=== PATIENT | male | born 1960 | race Caucasian/White ===

== ENCOUNTER 2019-12-22 13:44 | Emergency (ER) | payer OTHER, SELFPAY ==
[2019-12-22 16:07] VITALS: BP 139/90; PULSE 82; RESP 17; TEMP 36.7; O2SAT 96; BMI 41.8
--- NOTE | 2019-12-22 16:10 | ED.BACK ---
HPI - Back Pain/Injury General Chief Complaint: Back Pain/Injury Stated Complaint: BACK PAIN X3DAYS Time Seen by Provider: 12/22/19 16:06 Source: patient and EMS Mode of arrival: EMS History of Present Illness HPI Narrative: 59-year-old male with a past medical history of sciatica, herniated disc, hypertension, hyperlipidemia c/o acute on chronic low back/sciatic pain greater on right x3 days exacerbated today after standing from the toilet and twisting/tweaking R thigh. reports recently moved back to [facility] and does not have PCP. Denies direct injury/ falls or trauma, numbness /tingling, incontinence / retention, fever /chills MD elicited complaint: back pain Related Data Previous Rx's Medication Instructions Recorded acetaminophen [Tylenol Extra 500 mg PO Q6H PRN #20 tab 12/22/19 Strength] cyclobenzaprine 5 mg PO Q8H PRN 5 Days #14 tab 12/22/19 lidocaine [Lidoderm] 1 patch TOPICAL DAILY PRN #30 ea 12/22/19 MDD remove after 12 hours naproxen 500 mg PO BID PRN 10 Days #20 tab 12/22/19 Allergies Allergy/AdvReac Type Severity Reaction Status Date / Time Penicillins Allergy rash Verified 12/22/19 16:07 Sulfa (Sulfonamide Allergy rash Verified 12/22/19 16:07 Antibiotics) Review of Systems Review of Systems: Constitutional: No Weight loss, No Fever, No Chills Gastrointestinal: No Nausea, No Vomiting, No Diarrhea, No Constipation, No Abdominal pain Genitourinary:, No Dysuria, No Urinary Frequency, No Hematuria, No Urinary Incontinence, No Urgency, No Flank Pain Musculoskeletal:+back pain, +R thigh pain joint pain, No Myalgias, No Joint Swelling Skin: No Skin Lesions, No rash Neuro: No Weakness, No Numbness, No Paresthesias PMFSH Past Medical History Attestation statement: The following information was validated with the patient. Medical History (Updated 12/22/19 @ 16:18 by ALEJANDRO Doll) Hernia High cholesterol HTN (hypertension) Surgical History (Updated 12/22/19 @ 16:12 by Patti Templeton) H/O hand surgery Social History Social History Smoking Status: Former smoker Use of substances other than those prescribed or required for medical reasons: No Advance Directives: No Advance Directives Information Provided: No Physical Exam Const: General: cooperative and healthy appearing Orientation/consciousness: patient oriented x3 Limitations: no limitations HENMT: Head: Yes normal to inspection Ears: hearing grossly normal bilaterally General nose exam: Normal external nose present Face and sinus: Yes normal facial exam Eyes: General: appearance normal, both eyes and all related structures EOM: EOMs intact bilaterally Neck: Other: no midline cervical spine tenderness Neck: Yes normal visual inspection Resp: Effort & Inspection: normal respiratory effort GI: Inspection: Yes normal to inspection Palpation (GI): Soft to palpation, nontender, no guarding and not rigid Back/Spine/Pelvis: Other: no midline thoracic/ lumbar spinous tenderness. Back pain not reproducible on exam. +Right thigh TTP. No deformity/ecchymosis or erythema Skin: Rashes: no rashes Wounds: no wounds Neuro: Other: no saddle anesthesia General: patient oriented x3 Gait exam (Neuro): Normal gait present Extrem: General: Yes normal to inspection MDM - Back Pain/Injury MDM Narrative Medical decision making narrative: likely MSK pain. No midline spinous tenderness or red flag symptoms. Low concern for cauda equina or cord compression Discharge Plan Discharge Clinical Impression: Muscle strain Sciatica Qualifiers: Laterality: right Qualified Code(s): M54.31 - Sciatica, right side Patient Disposition: Home, Self-Care Instructions: Chronic Back Pain (DC) Additional Instructions: Your pain is likely musculoskeletal Flexeril is a muscle relaxer, take at night as it makes you drowsy, do not drive, drink alcohol, or operate machinery while taking it Naproxen as an anti-inflammatory / pain medication, take with food Lidoderm patches are numbing patches, apply to painful area In addition take Tylenol at home If symptoms persist or worsen, pain becomes unbearable, you developed urinary retention or incontinence, or weakness return to the ED Prescriptions: New acetaminophen [Tylenol Extra Strength] 500 mg tablet 500 mg PO Q6H PRN (Reason: pain or fever) Qty: 20 RF: 0 lidocaine [Lidoderm] 5 % adhesive patch,medicated 1 patch topical DAILY MDD remove after 12 hours PRN (Reason: pain) Qty: 30 RF: 0 naproxen 500 mg tablet 500 mg PO BID PRN (Reason: pain) 10 Days Qty: 20 RF: 0 cyclobenzaprine 5 mg tablet 5 mg PO Q8H PRN (Reason: pain (scale score 7-10)) 5 Days Qty: 14 RF: 0 Referrals: Po,Arlyn Francois MD [Physician] - 1 week ( establish care at a primary care doctor's office)
[2019-12-22] MEDS: Lidocaine 4 % Patch ADH..PATCH 1 PATCH TRANSDERMA (16:45)
[2019-12-22] MEDS: Ketorolac Tromethamine 15 MG/ML VIAL IM (16:46)
[2019-12-22] MEDS: Cyclobenzaprine HCl 5 MG TABLET PO (16:46)
== END 2019-12-22 17:05 | disposition home or self-care (01) ==
PROVIDERS: Emergency Provider Internal Medicine
DX: M54.31 Sciatica, right side (principal); I10 Essential (primary) hypertension; Z79.899 Other long term (current) drug therapy
CPT/HCPCS: 96372; 99283; 99284; J1885

== ENCOUNTER 2020-04-02 14:40 | Outpatient (REF) | payer OTHER, SELFPAY | END 2020-04-02 14:41 | disposition home or self-care (01) | LOC: HO.BBR 14:40 | PROVIDERS: Visit Provider Internal Medicine Hematology & Oncology | DX: Z13.89 Encounter for screening for other disorder (principal) ==

== ENCOUNTER 2020-04-16 14:53 | Outpatient (REF) | payer OTHER, SELFPAY | END 2020-04-16 14:54 | disposition home or self-care (01) | LOC: HO.BBR 14:53 | PROVIDERS: Visit Provider Internal Medicine Hematology & Oncology | DX: Z13.89 Encounter for screening for other disorder (principal) ==

== ENCOUNTER 2020-04-30 15:11 | Outpatient (REF) | payer OTHER, SELFPAY ==
[2020-04-30 16:56] LABS: Iron 48 mcg/dL (45-160); Percent Iron Saturation 17 % (15-50); Total Iron Binding Capacity 287 mcg/dL (228-428); Unsaturated Iron Binding 239 ug/dL
[2020-04-30 17:19] LABS: Ferritin 342 ng/mL (20-250)
== END 2020-04-30 15:12 | disposition home or self-care (01) ==
LOC: HO.BBR 15:11
PROVIDERS: Visit Provider Internal Medicine Hematology & Oncology
DX: E83.110 Hereditary hemochromatosis (principal)
CPT/HCPCS: 36415; 82728; 83540

== ENCOUNTER 2020-05-27 15:05 | Outpatient (REF) | payer OTHER, SELFPAY ==
[2020-05-27 16:32] LABS: Iron 42 mcg/dL (45-160); Percent Iron Saturation 14 % (15-50); Total Iron Binding Capacity 304 mcg/dL (228-428); Unsaturated Iron Binding 262 ug/dL
[2020-05-27 16:53] LABS: Ferritin 245 ng/mL (20-250)
== END 2020-05-27 15:06 | disposition home or self-care (01) ==
LOC: HO.BBR 15:05
PROVIDERS: Visit Provider Internal Medicine Hematology & Oncology
DX: E83.110 Hereditary hemochromatosis (principal)
CPT/HCPCS: 36415; 82728; 83540

== ENCOUNTER 2020-06-24 12:59 | Outpatient (REF) | payer OTHER, SELFPAY ==
[2020-06-24 14:52] LABS: Iron 37 mcg/dL (45-160); Percent Iron Saturation 12 % (15-50); Total Iron Binding Capacity 304 mcg/dL (228-428); Unsaturated Iron Binding 267 ug/dL
[2020-06-24 15:14] LABS: Ferritin 176 ng/mL (20-250)
== END 2020-06-24 13:00 | disposition home or self-care (01) ==
LOC: HO.BBR 12:59
PROVIDERS: Visit Provider Internal Medicine Hematology & Oncology
DX: E83.110 Hereditary hemochromatosis (principal)
CPT/HCPCS: 36415; 82728; 83540

== ENCOUNTER 2020-07-08 15:03 | Outpatient (REF) | payer OTHER, SELFPAY | END 2020-07-08 15:04 | disposition home or self-care (01) | LOC: HO.BBR 15:03 | PROVIDERS: Visit Provider Internal Medicine Hematology & Oncology | DX: Z13.89 Encounter for screening for other disorder (principal) ==

== ENCOUNTER 2020-07-22 15:06 | Outpatient (REF) | payer OTHER, SELFPAY ==
[2020-07-22 15:55] LABS: Iron 44 mcg/dL (45-160); Percent Iron Saturation 13 % (15-50); Total Iron Binding Capacity 328 mcg/dL (228-428); Unsaturated Iron Binding 284 ug/dL
[2020-07-22 16:16] LABS: Ferritin 126 ng/mL (20-250)
== END 2020-07-22 15:07 | disposition home or self-care (01) ==
LOC: HO.BBR 15:06
PROVIDERS: Visit Provider Internal Medicine Hematology & Oncology
DX: E83.110 Hereditary hemochromatosis (principal)
CPT/HCPCS: 36415; 82728; 83540

== ENCOUNTER 2020-08-05 15:11 | Outpatient (REF) | payer OTHER, SELFPAY | END 2020-08-05 15:12 | disposition home or self-care (01) | LOC: HO.BBR 15:11 | PROVIDERS: Visit Provider Internal Medicine Hematology & Oncology | DX: Z13.89 Encounter for screening for other disorder (principal) ==

== ENCOUNTER 2020-08-19 14:01 | Outpatient (REF) | payer OTHER, SELFPAY ==
[2020-08-19 15:08] LABS: Iron 52 mcg/dL (45-160); Percent Iron Saturation 15 % (15-50); Total Iron Binding Capacity 340 mcg/dL (228-428); Unsaturated Iron Binding 288 ug/dL
[2020-08-19 15:29] LABS: Ferritin 107 ng/mL (20-250)
== END 2020-08-19 14:02 | disposition home or self-care (01) ==
LOC: HO.BBR 14:01
PROVIDERS: Visit Provider Internal Medicine Hematology & Oncology
DX: E83.110 Hereditary hemochromatosis (principal)
CPT/HCPCS: 36415; 82728; 83540

== ENCOUNTER 2020-09-03 14:07 | Outpatient (REF) | payer OTHER, SELFPAY | END 2020-09-03 14:08 | disposition home or self-care (01) | LOC: HO.BBR 14:07 | PROVIDERS: Visit Provider Internal Medicine Hematology & Oncology | DX: Z13.89 Encounter for screening for other disorder (principal) ==

== ENCOUNTER 2020-11-19 10:08 | Outpatient (REF) | payer OTHER, SELFPAY ==
[2020-11-19 10:55] LABS: Iron 30 mcg/dL (45-160); Percent Iron Saturation 10 % (15-50); Total Iron Binding Capacity 309 mcg/dL (228-428); Unsaturated Iron Binding 279 ug/dL
[2020-11-19 11:15] LABS: Ferritin 73 ng/mL (20-250)
== END 2020-11-19 10:09 | disposition home or self-care (01) ==
LOC: HO.BBR 10:08
PROVIDERS: PCP Internal Medicine; Visit Provider Internal Medicine Hematology & Oncology
DX: E83.110 Hereditary hemochromatosis (principal)
CPT/HCPCS: 36415; 82728; 83540

== ENCOUNTER 2020-12-01 14:08 | Outpatient (REF) | payer OTHER, SELFPAY | END 2020-12-01 14:09 | disposition home or self-care (01) | LOC: HO.BBR 14:08 | PROVIDERS: PCP Internal Medicine; Visit Provider Internal Medicine Hematology & Oncology | DX: Z13.89 Encounter for screening for other disorder (principal) ==

== ENCOUNTER 2020-12-17 15:21 | Outpatient (REF) | payer OTHER, SELFPAY ==
[2020-12-17 16:19] LABS: Iron 30 mcg/dL (45-160); Percent Iron Saturation 10 % (15-50); Total Iron Binding Capacity 306 mcg/dL (228-428); Unsaturated Iron Binding 276 ug/dL
[2020-12-17 16:39] LABS: Ferritin 61 ng/mL (20-250)
== END 2020-12-17 15:22 | disposition home or self-care (01) ==
LOC: HO.BBR 15:21
PROVIDERS: Visit Provider Internal Medicine Hematology & Oncology
DX: E83.110 Hereditary hemochromatosis (principal)
CPT/HCPCS: 36415; 82728; 83540

== ENCOUNTER 2020-12-31 09:29 | Outpatient (REF) | payer OTHER, SELFPAY | END 2020-12-31 09:30 | disposition home or self-care (01) | LOC: HO.BBR 09:29 | PROVIDERS: Visit Provider Internal Medicine Hematology & Oncology | DX: E83.110 Hereditary hemochromatosis (principal) | CPT/HCPCS: 85014; 85018; 99195 ==

== ENCOUNTER 2021-01-14 11:11 | Outpatient (REF) | payer OTHER, SELFPAY | END 2021-01-14 11:12 | disposition home or self-care (01) | LOC: HO.BBR 11:11 | PROVIDERS: Visit Provider Internal Medicine Hematology & Oncology | DX: Z13.89 Encounter for screening for other disorder (principal) ==

== ENCOUNTER 2021-03-18 10:36 | Outpatient (REF) | payer OTHER, SELFPAY ==
[2021-03-18 12:23] LABS: Ferritin 29 ng/mL (20-250)
== END 2021-03-18 10:37 | disposition home or self-care (01) ==
LOC: HO.BBR 10:36
PROVIDERS: Visit Provider Internal Medicine Hematology & Oncology
DX: E83.110 Hereditary hemochromatosis (principal)
CPT/HCPCS: 36415; 82728

== ENCOUNTER 2021-04-22 07:55 | Outpatient (REF) | payer OTHER, SELFPAY ==
[2021-04-22 09:21] LABS: Ferritin 48 ng/mL (20-250)
== END 2021-04-22 07:56 | disposition home or self-care (01) ==
LOC: HO.BBR 07:55
PROVIDERS: Visit Provider Internal Medicine Hematology & Oncology
DX: E83.110 Hereditary hemochromatosis (principal)
CPT/HCPCS: 36415; 82728; 85014; 85018; 99195

== ENCOUNTER 2021-06-24 11:13 | Outpatient (REF) | payer OTHER, SELFPAY | END 2021-06-24 11:14 | disposition home or self-care (01) | LOC: HO.BBR 11:13 | PROVIDERS: Visit Provider Internal Medicine Hematology & Oncology | DX: Z13.89 Encounter for screening for other disorder (principal) ==

== ENCOUNTER 2021-08-19 14:10 | Outpatient (REF) | payer OTHER, SELFPAY | END 2021-08-19 14:11 | disposition home or self-care (01) | LOC: HO.BBR 14:10 | PROVIDERS: Visit Provider Internal Medicine Hematology & Oncology | DX: Z13.89 Encounter for screening for other disorder (principal) ==

== ENCOUNTER 2021-10-21 14:23 | Outpatient (REF) | payer OTHER, SELFPAY ==
[2021-10-21 15:30] LABS: Ferritin 70 ng/mL (20-250)
== END 2021-10-21 14:24 | disposition home or self-care (01) ==
LOC: HO.BBR 14:23
PROVIDERS: Visit Provider Internal Medicine Hematology & Oncology
DX: E83.110 Hereditary hemochromatosis (principal)
CPT/HCPCS: 36415; 82728

== ENCOUNTER 2021-12-23 11:00 | Outpatient (REF) | payer OTHER, SELFPAY ==
[2021-12-23 13:05] LABS: Ferritin 70 ng/mL (20-250)
== END 2021-12-23 11:01 | disposition home or self-care (01) ==
LOC: HO.BBR 11:00
PROVIDERS: Visit Provider Internal Medicine Hematology & Oncology
DX: E83.110 Hereditary hemochromatosis (principal)
CPT/HCPCS: 36415; 82728

== ENCOUNTER 2022-05-04 15:18 | Outpatient (REF) | payer OTHER, SELFPAY ==
[2022-05-04 15:35] LABS: MANUAL DIFF FLAG NO
[2022-05-04 15:37] LABS: Basophils Percent Auto 0.5 % (0-2); Eosinophils Absolute Auto 0.1 X10*3/uL (0.0-0.4); Eosinophils Percent Auto 1.8 % (0-4); Hematocrit 45.5 % (42.0-52.0); Hemoglobin 14.7 g/dl (14.0-18.0); Imm Gran Abs Auto 0.02 X10*3/uL (0.00-0.03); Imm Gran Pct Auto 0.4 % (0.0-0.4); Lymphocytes Absolute Auto 0.8 X10*3/uL (1.2-4.9); Lymphocytes Percent Auto 14.3 % (20-40); Mean Corpuscular HGB Conc 32.3 g/dl (31.0-36.0); Mean Corpuscular Hemoglobin 26.5 pg (27.0-33.0); Mean Corpuscular Volume 82.1 fL (80.0-98.0); Mean Platelet Volume 9.5 fL (9.4-12.4); Monocytes Absolute Auto 0.7 X10*3/uL (0.1-1.2); Monocytes Percent Auto 12.8 % (2-11); Neutrophils Absolute Auto 3.9 x10*3/uL (2.0-8.3); Neutrophils Percent Auto 70.2 % (45-73); Platelet Count 206 X10*3/uL (160-400); Red Blood Count 5.54 X10*6/uL (4.60-5.80); White Blood Count 5.5 X10*3/uL (4.8-10.8)
[2022-05-04 16:18] LABS: Iron 22 mcg/dL (45-160); Percent Iron Saturation 9 % (15-50); Total Iron Binding Capacity 258 mcg/dL (228-428); Unsaturated Iron Binding 236 ug/dL
[2022-05-04 16:28] LABS: Ferritin 160 ng/mL (20-250)
== END 2022-05-04 15:19 | disposition home or self-care (01) ==
LOC: HO.BBR 15:18
PROVIDERS: PCP Internal Medicine; Visit Provider Internal Medicine Hematology & Oncology
DX: E83.110 Hereditary hemochromatosis (principal)
CPT/HCPCS: 36415; 82728; 83540; 85025

== ENCOUNTER 2022-05-29 16:46 | Emergency (ER) | payer OTHER, SELFPAY ==
--- NOTE | ~2022-05-29 | CT_ITS ---
EXAMINATION: CT HEAD WITHOUT CONTRAST CT CERVICAL SPINE WITHOUT CONTRAST CLINICAL INFORMATION: Syncope. COMPARISON: None. TECHNIQUE: Imaging was performed from the skull base to vertex without intravenous administration of contrast. In addition, helical noncontrast CT imaging was acquired through the cervical spine and source images were reviewed along with axial reconstructions and sagittal and coronal MPRs. [This CT examination was performed using dose optimization techniques as appropriate, variously including the following: *Automated exposure control *Adjustment of mA and/or kV according to patient size (this includes techniques or standardized protocols for targeted exams where dose is matched to indication/reason for exam; i.e. extremities or head) *Use of iterative reconstruction technique] DLP: 1637 mGy-cm FINDINGS: HEAD: No intracranial mass, hemorrhage, or midline shift is visualized. The ventricles and sulci are proportional. No extra-axial collections are identified. Lobular mucosal thickening at the inferior maxillary sinuses bilaterally. Mastoid air cells and middle ear cavities are normally aerated. CERVICAL SPINE: There is no evidence of acute cervical spine fracture. Vertebral bodies remain normal in height. Cervical vertebrae have normal alignment. There is multilevel degenerative spondylosis of the cervical spine with disc height narrowing and endplate spurs and facet joint arthrosis No pre- or paravertebral soft tissue abnormality is identified. Limited assessment of the lung apices is unremarkable. CT/CT head/brain wo IV con IMPRESSION: 1. No acute intracranial pathology. 2. No CT evidence of acute cervical spine fracture or traumatic subluxation
--- NOTE | ~2022-05-29 | CT_ITS ---
EXAMINATION: CT HEAD WITHOUT CONTRAST CT CERVICAL SPINE WITHOUT CONTRAST CLINICAL INFORMATION: Syncope. COMPARISON: None. TECHNIQUE: Imaging was performed from the skull base to vertex without intravenous administration of contrast. In addition, helical noncontrast CT imaging was acquired through the cervical spine and source images were reviewed along with axial reconstructions and sagittal and coronal MPRs. [This CT examination was performed using dose optimization techniques as appropriate, variously including the following: *Automated exposure control *Adjustment of mA and/or kV according to patient size (this includes techniques or standardized protocols for targeted exams where dose is matched to indication/reason for exam; i.e. extremities or head) *Use of iterative reconstruction technique] DLP: 1637 mGy-cm FINDINGS: HEAD: No intracranial mass, hemorrhage, or midline shift is visualized. The ventricles and sulci are proportional. No extra-axial collections are identified. Lobular mucosal thickening at the inferior maxillary sinuses bilaterally. Mastoid air cells and middle ear cavities are normally aerated. CERVICAL SPINE: There is no evidence of acute cervical spine fracture. Vertebral bodies remain normal in height. Cervical vertebrae have normal alignment. There is multilevel degenerative spondylosis of the cervical spine with disc height narrowing and endplate spurs and facet joint arthrosis No pre- or paravertebral soft tissue abnormality is identified. Limited assessment of the lung apices is unremarkable. CT/CT cervical spine wo IV con IMPRESSION: 1. No acute intracranial pathology. 2. No CT evidence of acute cervical spine fracture or traumatic subluxation
[2022-05-29 16:54] VITALS: BP 156/92; PULSE 123; RESP 18; TEMP 36.9; O2SAT 94; BMI 41.8
--- NOTE | 2022-05-29 16:55 | ECG_ITS ---
Test Reason : AMS Blood Pressure : / mmHG Vent. Rate : 127 BPM Atrial Rate : 000 BPM P-R Int : 000 ms QRS Dur : 094 ms QT Int : 332 ms P-R-T Axes : 000 054 047 degrees QTc Int : 482 ms Atrial fibrillation with rapid ventricular response with premature ventricular or aberrantly conducted complexes Nonspecific ST abnormality Abnormal ECG No previous ECGs available Referred By: Maribel Mccarty Electronically Signed By:Gavin Ying
--- NOTE | 2022-05-29 17:04 | ED_ITS ---
HPI - Altered Mental Status General Chief Complaint: Altered Mental Status Stated Complaint: AMS X15 MIN,NARCAN GIVEN PER EMS Time Seen by Provider: 05/29/22 16:50 Source: patient and EMS Mode of arrival: EMS History of Present Illness HPI narrative: 61-year-old male who reports hypertension and a remote history of atrial fibrillation for which he does not take any medications or blood thinners for and also denies any alcohol or drug use. Patient states that he when out into the [place] to play with his 5-year-old son and then the next thing he knew he was surrounded by EMS. EMS reports that the brother witnessed the incident and called EMS. EMS states that on arrival they were unsure of etiology in administered Narcan, the patient did wake up, EMS states that patient initially appeared to be altered and had a heart rate of 180, EMS reports that he has had a heart rate of 140 that appears to be IRR/IRR. Patient states he has taken all medications today. Related Data Previous Rx's Medication Instructions Recorded acetaminophen 500 mg tablet 500 mg PO Q6H PRN pain or fever 12/22/19 (Tylenol Extra Strength) #20 tabs cyclobenzaprine 5 mg tablet 5 mg PO Q8H PRN pain (scale score 12/22/19 7-10) 5 days #14 tabs lidocaine 5 % topical patch 1 patch topical DAILY PRN pain #30 12/22/19 (Lidoderm) ea apixaban 5 mg tablet (Eliquis) 5 mg PO BID #60 tabs 05/29/22 metoprolol succinate 25 mg 12.5 mg PO DAILY #30 tabs 05/29/22 tablet,extended release 24 hr Allergies Allergy/AdvReac Type Severity Reaction Status Date / Time Penicillins Allergy rash Verified 12/22/19 16:07 Sulfa (Sulfonamide Allergy rash Verified 12/22/19 16:07 Antibiotics) Review of Systems Review of Systems: Pertinent positives and negatives as stated in HPI PMFSH Past Medical History Source: nursing notes reviewed Medical History Hernia High cholesterol HTN (hypertension) Surgical History H/O hand surgery Social History Social History Smoked in Last 30 Days: No Use of substances other than those prescribed or required for medical reasons: No Any prior treatment program specific to substance use: No Advance Directives: No Advance Directives Information Provided: No Physical Exam ED Vital Signs: Vital Signs - 24 hr 05/29/22 16:54 05/29/22 17:19 05/29/22 17:56 Temperature 98.4 F Pulse Rate 123 H 133 H 107 H Respiratory Rate 18 18 Blood Pressure 156/92 H 128/71 Pulse Oximetry 94 Oxygen Delivery Method Room Air BMI result Body Mass Index 41.8 VITAL SIGNS: Reviewed. GENERAL: Well developed, well nourished, in no acute distress. HEAD: Normocephalic/atraumatic EYES: PERRLA, EOMI OROPHARYNX: no oral lesions noted, posterior pharynx clear NECK: Supple, no adenopathy LUNGS: Normal breath sounds. No adventitious sounds or accessory muscle use. SpO2<94> CARDIOVASCULAR: Regular rate and rhythm without noted murmurs, no JVD but lower extremity edema ABDOMEN: Soft, non-tender, non-distended with bowel sounds. MUSCULOSKELETAL: No tenderness, deformities, or effusions noted on gross inspect ion. EXTREMITIES: No cyanosis, clubbing or edema. SKIN: Inspection of the skin reveals no rashes, ulcerations, jaundice, pallor, or petechiae. NEUROLOGIC: Alert and oriented x 3. Strength and sensation to light touch were grossly intact x 4, no facial asymmetry, no pronator drift, cranial nerves 2-12 are grossly intact. Medications Administered Discontinued Medications Generic Name Dose Route Start Last Admin Trade Name Freq PRN Reason Stop Dose Admin Sodium Chloride 500 mls @ 999 mls/hr 05/29/22 18:30 05/29/22 18:44 Ns IV 05/29/22 19:00 999 mls/hr .Q31M RENÉE Administration Metoprolol Tartrate 5 mg 05/29/22 17:11 05/29/22 17:19 Metoprolol Tartrate 5 Mg/5 Ml Vial IVPUSH 05/29/22 17:12 5 mg ONCE ONE Administration Metoprolol Tartrate 5 mg 05/29/22 17:42 05/29/22 17:57 Metoprolol Tartrate 5 Mg/5 Ml Vial IVPUSH 05/29/22 17:43 5 mg ONCE ONE Administration Medical Decision Making Medical Decision Making MDM Narrative: 61-year-old male with history and clinical presentation consistent with syncopal episode, noted to be in atrial fibrillation unclear if this is what initiated his syncopal episode but a possibility and patient is not on any medications for heart rate control or blood thinners. Patient is nonfocal and after heart rate is controlled will obtain CT head and C-spine although no acute clinical findings. I do have mild suspicion for possible illicit substances as patient did have good response to Narcan although I acknowledge this may have been coincidental. [id number]: 2 I reviewed all investigations in my interpretation is that patient is currently in atrial fibrillation with reasonable rate control after 10 mg of Lopressor IVP, patient also given Lopressor tartrate 12.5 mg and will go home with a prescription for this medication. I discussed with the patient at bedside the risks and benefits of being discharged without formal cardiology evaluation as well as echocardiogram that this could result in but is not limited to morbidity via clots or strokes and patient is firm and wanting to be discharged home. He understands the risks and will go home with a prescription for Eliquis as well as metoprolol tartrate. At this time patient is discharged home against medical advice. Differential Diagnosis Please see the discussion above Admission/Observation Please see the discussion above Lab Data Please see the discussion above 05/29/22 17:16 05/29/22 17:16 Labs: Lab Results 05/29/22 05/29/22 05/29/22 Range/Units 17:11 17:16 17:16 WBC 9.7 (4.8-10.8) X10*3/uL RBC 5.13 (4.60-5.80) X10*6/uL Hgb 14.1 (14.0-18.0) g/dl Hct 43.2 (42.0-52.0) % MCV 84.2 (80.0-98.0) fL MCH 27.5 (27.0-33.0) pg MCHC 32.6 (31.0-36.0) g/dl RDW 14.0 (11.0-16.0) % Plt Count 205 (160-400) X10*3/uL MPV 9.9 (9.4-12.4) fL Immature Gran % (Auto) 0.5 H (0.0-0.4) % Neut % (Auto) 76.8 H (45-73) % Lymph % (Auto) 14.3 L (20-40) % [place] % (Auto) 7.1 (2-11) % Eos % (Auto) 0.8 (0-4) % Baso % (Auto) 0.5 (0-2) % Lymph # (Auto) 1.4 (1.2-4.9) X10*3/uL [place] # (Auto) 0.7 (0.1-1.2) X10*3/uL Eos # (Auto) 0.1 (0.0-0.4) X10*3/uL Baso # (Auto) 0.1 (0.0-0.2) X10*3/uL Abs Immat Gran (auto) 0.05 H (0.00-0.03) X10*3/uL Absolute Neuts (auto) 7.4 (2.0-8.3) x10*3/uL Absolute Nucleated RBC 0.000 (0.0-0.012) X10*3/uL Nucleated RBC % (auto) 0.0 (0.0-0.2) /100WBC PT 12.8 (10.0-13.1) SEC INR 1.1 (0.9-1.1) APTT 27.7 (26.0-36.4) SEC Sodium (135-145) mmol/L Potassium (3.3-5.1) mmol/L Chloride (96-108) mmol/L Carbon Dioxide (22-29) mmol/L Anion Gap (12-20) BUN (9-16) mg/dL Creatinine (0.5-1.4) mg/dL Estim Creat Clear Calc Estimated GFR POC Glucose 211 H (60-115) mg/dL Random Glucose (60-115) mg/dL Calcium (8.4-10.2) mg/dL Magnesium (1.6-2.6) mg/dL Total Bilirubin (0.0-1.0) mg/dL AST (5-37) U/L ALT (0-40) U/L Alkaline Phosphatase (39-117) U/L Troponin I High Sens (<3.5-35.0) ng/L B-Natriuretic Peptide (<100) pg/mL Total Protein (6.5-8.0) g/dL Albumin (3.5-5.0) g/dL Ethyl Alcohol mg/dL COVID-19 ([facility]) (Negative) COVID-19 Clin Com 05/29/22 05/29/22 05/29/22 Range/Units 17:16 17:16 17:16 WBC (4.8-10.8) X10*3/uL RBC (4.60-5.80) X10*6/uL Hgb (14.0-18.0) g/dl Hct (42.0-52.0) % MCV (80.0-98.0) fL MCH (27.0-33.0) pg MCHC (31.0-36.0) g/dl RDW (11.0-16.0) % Plt Count (160-400) X10*3/uL MPV (9.4-12.4) fL Immature Gran % (Auto) (0.0-0.4) % Neut % (Auto) (45-73) % Lymph % (Auto) (20-40) % [place] % (Auto) (2-11) % Eos % (Auto) (0-4) % Baso % (Auto) (0-2) % Lymph # (Auto) (1.2-4.9) X10*3/uL [place] # (Auto) (0.1-1.2) X10*3/uL Eos # (Auto) (0.0-0.4) X10*3/uL Baso # (Auto) (0.0-0.2) X10*3/uL Abs Immat Gran (auto) (0.00-0.03) X10*3/uL Absolute Neuts (auto) (2.0-8.3) x10*3/uL Absolute Nucleated RBC (0.0-0.012) X10*3/uL Nucleated RBC % (auto) (0.0-0.2) /100WBC PT (10.0-13.1) SEC INR (0.9-1.1) APTT (26.0-36.4) SEC Sodium 138 (135-145) mmol/L Potassium 3.7 (3.3-5.1) mmol/L Chloride 98 (96-108) mmol/L Carbon Dioxide 27 (22-29) mmol/L Anion Gap 17 (12-20) BUN 24 H (9-16) mg/dL Creatinine 1.14 (0.5-1.4) mg/dL Estim Creat Clear Calc 98.3 Estimated GFR > 60 POC Glucose (60-115) mg/dL Random Glucose 229 H (60-115) mg/dL Calcium 9.3 (8.4-10.2) mg/dL Magnesium 1.9 (1.6-2.6) mg/dL Total Bilirubin 0.5 (0.0-1.0) mg/dL AST 24 (5-37) U/L ALT 38 (0-40) U/L Alkaline Phosphatase 85 (39-117) U/L Troponin I High Sens 7.4 (<3.5-35.0) ng/L B-Natriuretic Peptide (<100) pg/mL Total Protein 7.1 (6.5-8.0) g/dL Albumin 4.0 (3.5-5.0) g/dL Ethyl Alcohol < 10 mg/dL COVID-19 ([facility]) (Negative) COVID-19 Clin Com 05/29/22 05/29/22 Range/Units 17:16 17:16 WBC (4.8-10.8) X10*3/uL RBC (4.60-5.80) X10*6/uL Hgb (14.0-18.0) g/dl Hct (42.0-52.0) % MCV (80.0-98.0) fL MCH (27.0-33.0) pg MCHC (31.0-36.0) g/dl RDW (11.0-16.0) % Plt Count (160-400) X10*3/uL MPV (9.4-12.4) fL Immature Gran % (Auto) (0.0-0.4) % Neut % (Auto) (45-73) % Lymph % (Auto) (20-40) % [place] % (Auto) (2-11) % Eos % (Auto) (0-4) % Baso % (Auto) (0-2) % Lymph # (Auto) (1.2-4.9) X10*3/uL [place] # (Auto) (0.1-1.2) X10*3/uL Eos # (Auto) (0.0-0.4) X10*3/uL Baso # (Auto) (0.0-0.2) X10*3/uL Abs Immat Gran (auto) (0.00-0.03) X10*3/uL Absolute Neuts (auto) (2.0-8.3) x10*3/uL Absolute Nucleated RBC (0.0-0.012) X10*3/uL Nucleated RBC % (auto) (0.0-0.2) /100WBC PT (10.0-13.1) SEC INR (0.9-1.1) APTT (26.0-36.4) SEC Sodium (135-145) mmol/L Potassium (3.3-5.1) mmol/L Chloride (96-108) mmol/L Carbon Dioxide (22-29) mmol/L Anion Gap (12-20) BUN (9-16) mg/dL Creatinine (0.5-1.4) mg/dL Estim Creat Clear Calc Estimated GFR POC Glucose (60-115) mg/dL Random Glucose (60-115) mg/dL Calcium (8.4-10.2) mg/dL Magnesium (1.6-2.6) mg/dL Total Bilirubin (0.0-1.0) mg/dL AST (5-37) U/L ALT (0-40) U/L Alkaline Phosphatase (39-117) U/L Troponin I High Sens (<3.5-35.0) ng/L B-Natriuretic Peptide 63 (<100) pg/mL Total Protein (6.5-8.0) g/dL Albumin (3.5-5.0) g/dL Ethyl Alcohol mg/dL COVID-19 ([facility]) Negative (Negative) COVID-19 Clin Com See Note Independent Interpretation I performed an independent interpretation of an: EKG Interpretation: Atrial fibrillation with RVR, HR-127, no STEMI, QTC/QRS within limits. 1838: a-fib, HR-95, no STEMI, QRS/QTc wnl Radiology Impression Radiologist Impression: My interpretation is in agreement with radiology's impression of the imaging study. External Record Review External record reviewed: Outpatient record and Prior outpatient labs Discharge Plan Discharge Clinical Impression: Atrial fibrillation with RVR, Hyperglycemia due to diabetes mellitus, Syncope Patient Disposition: Left Against Medical Advice Instructions: A-fib (Atrial Fibrillation) (ED), Syncope (ED), Diabetic Hyperglycemia (ED) Additional Instructions: 1. Resume all home medications as well as new medications. 2. You have been started on a blood thinner, you have also been provided with a coupon to help in cost management. 3. You have been given a referral to follow-up with cardiology. 4. Please call the office of your primary care provider 1st thing in the morning to initiate re-evaluation and further outpatient management. You understand that your signing out against medical advice. Our recommendation is that you should be admitted due to your passing out event in the context of having a fast, irregular heartbeat. Return to the emergency room at any time. Prescriptions: New Eliquis 5 mg tablet 5 mg PO BID Qty: 60 0RF metoprolol succinate 25 mg tablet extended release 24 hr 12.5 mg PO DAILY Qty: 30 0RF Discontinued naproxen 500 mg tablet 500 mg PO BID PRN (Reason: pain) 10 Days Qty: 20 0RF No Action acetaminophen [Tylenol Extra Strength] 500 mg tablet 500 mg PO Q6H PRN (Reason: pain or fever) Qty: 20 0RF lidocaine [Lidoderm] 5 % adhesive patch,medicated 1 patch topical DAILY MDD remove after 12 hours PRN (Reason: pain) Qty: 30 0RF Rx Instructions: leave on most painful area for up to 12 hrs cyclobenzaprine 5 mg tablet 5 mg PO Q8H PRN (Reason: pain (scale score 7-10)) 5 Days Qty: 14 0RF Referrals: Benjie Flores MD [Physician] - Gavin Ying MD [Physician] - (new onset a-fib RVR, ChadsVasc-2, would not stay and signed out AMA, started on Eliquis/Lopressor) Stand Alone Forms: Against Medical Advice
[2022-05-29 17:19] VITALS: PULSE 133
[2022-05-29] MEDS: Metoprolol Tartrate 5 MG/5 ML VIAL IVPUSH ×2 (17:19→17:57)
[2022-05-29 17:20] LABS: Glucose, Whole Blood 211 mg/dL (60-115)
[2022-05-29 17:21] LABS: MANUAL DIFF FLAG NO
[2022-05-29 17:26] LABS: Basophils Absolute Auto 0.1 X10*3/uL (0.0-0.2); Basophils Percent Auto 0.5 % (0-2); Eosinophils Absolute Auto 0.1 X10*3/uL (0.0-0.4); Eosinophils Percent Auto 0.8 % (0-4); Hematocrit 43.2 % (42.0-52.0); Hemoglobin 14.1 g/dl (14.0-18.0); Imm Gran Abs Auto 0.05 X10*3/uL (0.00-0.03); Imm Gran Pct Auto 0.5 % (0.0-0.4); Lymphocytes Absolute Auto 1.4 X10*3/uL (1.2-4.9); Lymphocytes Percent Auto 14.3 % (20-40); Mean Corpuscular HGB Conc 32.6 g/dl (31.0-36.0); Mean Corpuscular Hemoglobin 27.5 pg (27.0-33.0); Mean Corpuscular Volume 84.2 fL (80.0-98.0); Mean Platelet Volume 9.9 fL (9.4-12.4); Monocytes Absolute Auto 0.7 X10*3/uL (0.1-1.2); Monocytes Percent Auto 7.1 % (2-11); Neutrophils Absolute Auto 7.4 x10*3/uL (2.0-8.3); Neutrophils Percent Auto 76.8 % (45-73); Platelet Count 205 X10*3/uL (160-400); Red Blood Count 5.13 X10*6/uL (4.60-5.80); White Blood Count 9.7 X10*3/uL (4.8-10.8)
--- NOTE | 2022-05-29 17:38 | ECG_ITS ---
Test Reason : CHECK AFIB Blood Pressure : / mmHG Vent. Rate : 095 BPM Atrial Rate : 000 BPM P-R Int : 000 ms QRS Dur : 104 ms QT Int : 370 ms P-R-T Axes : 000 033 022 degrees QTc Int : 464 ms Atrial fibrillation Abnormal ECG When compared with ECG of 29-MAY-2022 17:04, No significant change was found Referred By: Maribel Mccarty Electronically Signed By:Gavin Ying
[2022-05-29 17:40] LABS: COVID-19 Test Negative (Negative); IDNOW Serial# BCCEAD1C
[2022-05-29 17:43] LABS: Ethanol < 10 mg/dL
[2022-05-29 17:44] LABS: INTERNATIONAL NORM RATIO 1.1 (0.9-1.1); Prothrombin Time 12.8 SEC (10.0-13.1)
[2022-05-29 17:45] LABS: Alanine Aminotransferase 38 U/L (0-40); Alkaline Phosphatase 85 U/L (39-117); Anion Gap 17 (12-20); Aspartate Amino Transferase 24 U/L (5-37); Bilirubin Total 0.5 mg/dL (0.0-1.0); Blood Urea Nitrogen 24 mg/dL (9-16); Calcium 9.3 mg/dL (8.4-10.2); Carbon Dioxide 27 mmol/L (22-29); Chloride 98 mmol/L (96-108); Creatinine Clr Calc Pharmacy 98.3; Estimated Glomerular Filt Rate > 60; Glucose Random 229 mg/dL (60-115); Magnesium 1.9 mg/dL (1.6-2.6); Potassium 3.7 mmol/L (3.3-5.1); Sodium 138 mmol/L (135-145); Total Protein 7.1 g/dL (6.5-8.0)
[2022-05-29 17:47] LABS: Partial Thromboplastin Time 27.7 SEC (26.0-36.4)
[2022-05-29 17:52] LABS: Troponin-I High Sensitivity 7.4 ng/L (<3.5-35.0)
[2022-05-29 17:56] VITALS: BP 128/71; PULSE 107; RESP 18
[2022-05-29 18:02] LABS: B Type Natriuretic Peptide 63 pg/mL (<100)
[2022-05-29] MEDS: 0.9 % Sodium Chloride 500 ML 999 ML IV (18:44)
[2022-05-29] MEDS: Apixaban 5 MG TABLET PO (20:11)
[2022-05-29] MEDS: Metoprolol Tartrate 12.5 MG HALFTAB PO (20:11)
--- NOTE | 2022-05-29 20:49 | PC.NURSE ---
Assumed care of pt. at 1900. At that time, pt continued w/Afif, heart rate was at 103. Pt. requesting to leave. aware and will d/c AMA. Pt. medicated per APR and provided with pamphlet with coupons for Eloquis. Pt. alert and oriented, ambulating with steady gait.
== END 2022-05-29 20:51 | disposition left against medical advice (07) ==
PROVIDERS: Emergency Provider Student in an Organized Health Care Education/Training Program
DX: R55 Syncope and collapse (principal); I48.20 Chronic atrial fibrillation, unspecified; E11.65 Type 2 diabetes mellitus with hyperglycemia; R06.02 Shortness of breath; R41.82 Altered mental status, unspecified; R51.9 Headache, unspecified; M54.2 Cervicalgia; Z20.822 Contact with and (suspected) exposure to COVID-19; Z20.828 Contact with and (suspected) exposure to other viral communicable diseases; Z79.899 Other long term (current) drug therapy
CPT/HCPCS: 36415; 70450; 72125; 80053; 82077; 82947; 83735; 83880; 84484; 85025; 85610; 85730; 87635; 93005; 96361; 96374; 96376; 99284; 99285

== ENCOUNTER 2022-07-06 15:21 | Outpatient (REF) | payer OTHER, SELFPAY ==
[2022-07-06 15:34] LABS: MANUAL DIFF FLAG NO
[2022-07-06 15:36] LABS: Basophils Percent Auto 0.5 % (0-2); Eosinophils Absolute Auto 0.2 X10*3/uL (0.0-0.4); Eosinophils Percent Auto 2.6 % (0-4); Hematocrit 41.1 % (42.0-52.0); Hemoglobin 13.7 g/dl (14.0-18.0); Imm Gran Abs Auto 0.02 X10*3/uL (0.00-0.03); Imm Gran Pct Auto 0.3 % (0.0-0.4); Lymphocytes Absolute Auto 1.7 X10*3/uL (1.2-4.9); Lymphocytes Percent Auto 23.4 % (20-40); Mean Corpuscular HGB Conc 33.3 g/dl (31.0-36.0); Mean Corpuscular Hemoglobin 27.1 pg (27.0-33.0); Mean Corpuscular Volume 81.4 fL (80.0-98.0); Monocytes Absolute Auto 0.6 X10*3/uL (0.1-1.2); Monocytes Percent Auto 7.8 % (2-11); Neutrophils Absolute Auto 4.8 x10*3/uL (2.0-8.3); Neutrophils Percent Auto 65.4 % (45-73); Platelet Count 247 X10*3/uL (160-400); Red Blood Count 5.05 X10*6/uL (4.60-5.80); Red Cell Distribution Width 13.2 % (11.0-16.0); White Blood Count 7.4 X10*3/uL (4.8-10.8)
[2022-07-06 16:18] LABS: Iron 89 mcg/dL (45-160); Percent Iron Saturation 31 % (15-50); Total Iron Binding Capacity 288 mcg/dL (228-428); Unsaturated Iron Binding 199 ug/dL
[2022-07-06 16:32] LABS: Ferritin 216 ng/mL (20-250)
== END 2022-07-06 15:22 | disposition home or self-care (01) ==
LOC: HO.BBR 15:21
PROVIDERS: Visit Provider Internal Medicine Hematology & Oncology
DX: E83.110 Hereditary hemochromatosis (principal)
CPT/HCPCS: 36415; 82728; 83540; 85014; 85018; 85025; 99195

== ENCOUNTER 2022-08-01 23:44 | Emergency (ER) | payer OTHER, SELFPAY ==
--- NOTE | 2022-08-01 | ECG_ITS ---
Test Reason : RAPID A-FIB Blood Pressure : / mmHG Vent. Rate : 172 BPM Atrial Rate : 061 BPM P-R Int : 152 ms QRS Dur : 098 ms QT Int : 258 ms P-R-T Axes : 000 056 030 degrees QTc Int : 436 ms Afib with RVR Premature ventricular complexes Abnormal ECG When compared with ECG of 29-MAY-2022 18:38, Heart rate has increased Referred By: Generic ED Physician Electronically Signed By:Gavin Ying
--- NOTE | ~2022-08-01 | XR_ITS ---
EXAMINATION: XR CHEST CLINICAL INFORMATION: Chest pain and shortness of breath COMPARISON: None available. TECHNIQUE: Frontal view of the chest was obtained. FINDINGS: The lungs are well expanded. The left base is not fully included in the [id number] of this study. No dense consolidation. No edema. No significant effusion. No pneumothorax. The cardiomediastinal silhouette is unremarkable for this technique. XR/XR chest 1V IMPRESSION: No acute pulmonary disease.
[2022-08-01 23:48] VITALS: PULSE 150
[2022-08-01 23:55] VITALS: BP 122/63; PULSE 177; RESP 16; O2SAT 87; BMI 52.0
--- NOTE | 2022-08-02 | ECG_ITS ---
Test Reason : REPEAT Blood Pressure : / mmHG Vent. Rate : 093 BPM Atrial Rate : 000 BPM P-R Int : 000 ms QRS Dur : 092 ms QT Int : 352 ms P-R-T Axes : 000 064 028 degrees QTc Int : 437 ms Atrial fibrillation with premature ventricular or aberrantly conducted complexes Low voltage QRS Abnormal ECG When compared with ECG of 01-AUG-2022 23:52, Heart rate has decreased Referred By: Stephany Flores Electronically Signed By:Gavin Ying
[2022-08-02] MEDS: Metoprolol Tartrate 5 MG/5 ML VIAL IVPUSH ×2 (00:07→01:45)
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
[2022-08-02] MEDS: 0.9 % Sodium Chloride 500 ML 999 ML IV ×2 (00:17→01:15)
[2022-08-02 00:18] LABS: MANUAL DIFF FLAG NO
[2022-08-02 00:19] LABS: Basophils Absolute Auto 0.1 X10*3/uL (0.0-0.2); Basophils Percent Auto 0.6 % (0-2); Eosinophils Percent Auto 0.2 % (0-4); Hematocrit 38.5 % (42.0-52.0); Hemoglobin 12.6 g/dl (14.0-18.0); Imm Gran Abs Auto 0.09 X10*3/uL (0.00-0.03); Imm Gran Pct Auto 0.7 % (0.0-0.4); Lymphocytes Absolute Auto 0.7 X10*3/uL (1.2-4.9); Lymphocytes Percent Auto 5.8 % (20-40); Mean Corpuscular HGB Conc 32.7 g/dl (31.0-36.0); Mean Corpuscular Hemoglobin 28.3 pg (27.0-33.0); Mean Corpuscular Volume 86.3 fL (80.0-98.0); Mean Platelet Volume 10.1 fL (9.4-12.4); Monocytes Absolute Auto 0.6 X10*3/uL (0.1-1.2); Neutrophils Percent Auto 87.7 % (45-73); Platelet Count 268 X10*3/uL (160-400); Red Blood Count 4.46 X10*6/uL (4.60-5.80); White Blood Count 12.6 X10*3/uL (4.8-10.8)
[2022-08-02 00:25] LABS: INTERNATIONAL NORM RATIO 1.2 (0.9-1.1); Prothrombin Time 14.1 SEC (10.0-13.1)
[2022-08-02 00:29] VITALS: PULSE 122; RESP 15; O2SAT 92
[2022-08-02 00:36] LABS: Alanine Aminotransferase 51 U/L (0-40); Alkaline Phosphatase 105 U/L (39-117); Anion Gap 18 (12-20); Aspartate Amino Transferase 28 U/L (5-37); Bilirubin Direct 0.1 mg/dL (0.0-0.5); Bilirubin Total 0.4 mg/dL (0.0-1.0); Blood Urea Nitrogen 23 mg/dL (9-16); Calcium 9.3 mg/dL (8.4-10.2); Carbon Dioxide 24 mmol/L (22-29); Chloride 105 mmol/L (96-108); Glucose Random 251 mg/dL (60-115); Lipase 19 U/L (8-78); Potassium 4.6 mmol/L (3.3-5.1); Sodium 142 mmol/L (135-145); Total Protein 7.1 g/dL (6.5-8.0)
[2022-08-02 00:40] LABS: Troponin-I High Sensitivity 11.6 ng/L (<3.5-35.0)
[2022-08-02 00:52] LABS: Creatinine Clr Calc Pharmacy 74.9; Estimated Glomerular Filt Rate 48
[2022-08-02 00:54] LABS: TSH reflex Free T4 1.05 uIU/mL (0.32-4.0)
[2022-08-02 01:03] LABS: Ethanol < 10 mg/dL
[2022-08-02 01:26] VITALS: BP 97/45; PULSE 128; RESP 15
--- NOTE | 2022-08-02 01:26 | PC.NURSE ---
per Flores hold second order of lopressor until BP improves. second 500ml bag of normal saline running now. will recheck BP and see if more lopressor can be given HR still 120s
[2022-08-02 01:30] LABS: Amphetamine Screen Urine Not Detected (Not Detect); Barbiturates, Urine Not Detected (Not Detect); Benzodiazepines Screen Urine Not Detected (Not Detect); Cannabinoid Screen Urine Not Detected (Not Detect); Cocaine Screen Urine Not Detected (Not Detect); Fentanyl, urine POSITIVE (Not Detect); Opiate Screen Urine POSITIVE (Not Detect); Phencyclidine Screen Urine Not Detected (Not Detect)
[2022-08-02 01:37] VITALS: BP 113/53
[2022-08-02 01:37] LABS: Appearance Urine Cloudy; Color Urine Dark Yellow; Glucose Urine UA Negative (Negative); Leukocyte Esterase Urine Negative (Negative); Nitrite Urine Negative (Negative); UMIC TRIGGER UACC YES; Urine Blood Negative (Negative); Urine Ketones Negative (Negative); Urine Protein 300 (3+) mg/dL (Neg-Trace)
--- NOTE | 2022-08-02 01:45 | PC.NURSE ---
per CATHERINE OK to give 5mg more lopressor. aware that BP is 113/53 and HR still irregular bouncing around from 105-120
[2022-08-02 01:50] LABS: Bacteria Urine None Seen (None Seen); Hyaline Casts Urine >20 /LPF (0-2); RBC Urine 0-2 /HPF (0-2); WBC Urine 0-5 /HPF (0-5)
[2022-08-02 02:20] VITALS: BP 107/55; PULSE 94; RESP 16
--- NOTE | 2022-08-02 02:41 | PC.NURSE ---
MD Horton sent in for admission to hospital - pt declining admission states he needs to get home to be ready to work by 5am . pt educated about risks of leaving AMA
[2022-08-02 03:09] VITALS: BP 116/58; PULSE 94; RESP 18; TEMP 36.6; O2SAT 96
--- NOTE | 2022-08-02 03:21 | PC.NURSE ---
pt informed of the risks of leaving AMA with a heart rate as fast as his upon arrival. pt encouraged to follow up with processes chemical design engineer arturo regarding medications amd possible dose changes. encouraged to return back as soon as possible if symptoms return or worsen. pt is ambulatory with steady gait at time of discharge. respirations even and unlabored in no apparent distress.
== END 2022-08-02 03:26 | disposition left against medical advice (07) ==
PROVIDERS: Emergency Provider Emergency Medicine Emergency Medical Services; PCP Internal Medicine
DX: I48.91 Unspecified atrial fibrillation (principal); F19.10 Other psychoactive substance abuse, uncomplicated; I10 Essential (primary) hypertension; E78.5 Hyperlipidemia, unspecified; Z79.01 Long term (current) use of anticoagulants; Z79.899 Other long term (current) drug therapy
CPT/HCPCS: 36415; 71045; 80048; 80076; 80307; 81001; 83690; 84443; 84484; 85025; 85610; 93005; 96361; 96374; 96376; 99285

== ENCOUNTER 2022-09-16 02:04 | Emergency (ER) | payer OTHER, SELFPAY ==
[2022-09-16 02:07] VITALS: BP 151/88; PULSE 109; RESP 12; TEMP 36.4; O2SAT 94; BMI 44.5
[2022-09-16 04:39] VITALS: BP 140/89; PULSE 84; RESP 18; TEMP 36.8
[2022-09-16] MEDS: Silver Nitrate Applicator STICK..EA. 1 APPL TOPICAL (05:18)
--- NOTE | 2022-09-16 05:36 | ED.LOWEXIN ---
HPI - Extremity Injury (Lower) General Chief Complaint: Extremity Injury, Lower Stated Complaint: L foot bleeding/ on blood thinners Time Seen by Provider: 09/16/22 05:14 Source: patient Mode of arrival: ambulatory Limitations: no limitations History of Present Illness HPI Narrative: patient injured left 5th toenail a month ago yesterday nail came off injuring the lateral aspect of 4th toe just prior to arrival patient started bleeding from there unable to stop the bleeding bleeding stopped after arrival Related Data Previous Rx's Medication Instructions Recorded acetaminophen 500 mg tablet 500 mg PO Q6H PRN pain or fever 12/22/19 (Tylenol Extra Strength) #20 tabs cyclobenzaprine 5 mg tablet 5 mg PO Q8H PRN pain (scale score 12/22/19 7-10) 5 days #14 tabs lidocaine 5 % topical patch 1 patch topical DAILY PRN pain #30 12/22/19 (Lidoderm) ea apixaban 5 mg tablet (Eliquis) 5 mg PO BID #60 tabs 05/29/22 metoprolol succinate 25 mg 12.5 mg PO DAILY #30 tabs 05/29/22 tablet,extended release 24 hr Allergies Allergy/AdvReac Type Severity Reaction Status Date / Time Penicillins Allergy rash Verified 12/22/19 16:07 Sulfa (Sulfonamide Allergy rash Verified 12/22/19 16:07 Antibiotics) Review of Systems Review of Systems: Yes all other systems are reviewed and are negative PMFSH Past Medical History Medical History Hernia High cholesterol HTN (hypertension) Surgical History H/O hand surgery Social History Social History Alcohol intake: current Alcohol intake frequency: holidays/special occasions only Smoked in Last 30 Days: No Use of substances other than those prescribed or required for medical reasons: No Advance Directives: No Advance Directives Information Provided: Yes Physical Exam Vital Signs: Vital Signs: Last Vital Signs Temp 98.3 F 09/16/22 04:39 Pulse 84 09/16/22 04:39 Resp 18 09/16/22 04:39 BP 140/89 H 09/16/22 04:39 Pulse Ox 94 09/16/22 02:07 O2 Del Method Room Air 09/16/22 02:07 BMI result Body Mass Index 44.5 Appearance: Alert. Oriented X3. No acute distress. Neck: Normal inspection. Neck supple. CVS: Normal heart rate and rhythm. Pulses normal. Respiratory: No respiratory distress. Equal air entry bilateral, Abdomen: Soft and nontender. Bowel sounds are present, Skin: Skin warm and dry. Normal skin color. Normal skin turgor. Extremities: No lower extremity edema. No calf tenderness slight puncture hole lateral aspect of left 4th toe no active bleeding at this time Neuro: Oriented X 3. Medications Administered Discontinued Medications Generic Name Dose Route Start Last Admin Trade Name Freq PRN Reason Stop Dose Admin Silver Nitrate 1 appl 09/16/22 05:13 09/16/22 05:18 Silver Nitrate Applicator Stick..Ea. TOPICAL 09/16/22 05:14 1 appl ONCE ONE Administration Medical Decision Making Medical Decision Making MDM Narrative: silver nitrate cautery was applied on the puncture wound on the left 4th toe no active bleeding at this time Discharge Plan Discharge Clinical Impression: Bleeding from wound Patient Disposition: Home, Self-Care Instructions: Acute Wounds (ED) Additional Instructions: local care as advised Prescriptions: No Action acetaminophen [Tylenol Extra Strength] 500 mg tablet 500 mg PO Q6H PRN (Reason: pain or fever) Qty: 20 0RF lidocaine [Lidoderm] 5 % adhesive patch,medicated 1 patch topical DAILY MDD remove after 12 hours PRN (Reason: pain) Qty: 30 0RF Rx Instructions: leave on most painful area for up to 12 hrs cyclobenzaprine 5 mg tablet 5 mg PO Q8H PRN (Reason: pain (scale score 7-10)) 5 Days Qty: 14 0RF Eliquis 5 mg tablet 5 mg PO BID Qty: 60 0RF metoprolol succinate 25 mg tablet extended release 24 hr 12.5 mg PO DAILY Qty: 30 0RF
== END 2022-09-16 05:46 | disposition home or self-care (01) ==
PROVIDERS: Emergency Provider Internal Medicine
DX: S91.105A Unspecified open wound of left lesser toe(s) without damage to nail, initial encounter (principal); X58.XXXA Exposure to other specified factors, initial encounter; Y93.9 Activity, unspecified; Y92.9 Unspecified place or not applicable; Y99.9 Unspecified external cause status; I10 Essential (primary) hypertension; Z79.01 Long term (current) use of anticoagulants; Z79.899 Other long term (current) drug therapy
CPT/HCPCS: 17250; 99284

== ENCOUNTER 2022-09-21 08:00 | Outpatient (AMB) | payer OTHER, SELFPAY ==
--- NOTE | 2022-09-21 08:04 | AM.OFFWIN_ITS ---
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 Pt states he went to ED when it initially happened, he mentions it was fine until yesterday when the blood started squirting out. Patient Tobacco Use Status: Never used Tobacco Allergies Penicillins Allergy (Verified 09/21/22 08:06) rash Sulfa (Sulfonamide Antibiotics) Allergy (Verified 09/21/22 08:06) rash Do you need a note to return to daycare/school/sports/work: No HPI HPI Comments History of Present Illness Details 61-year-old male presents for laceration to the foot. Patient had a dislodged toenail that is cutting into his 4th toe on his left foot. When he removed the trial last night he noticed a spurting blood. He went to the emergency department by of his car as facet for nitrate. When he returned home and started bleeding again his put a pressure dressing on it. Today presents for re-evaluation. Denies any other symptoms. [facility] Medical History Hernia High cholesterol HTN (hypertension) Surgical History H/O hand surgery Social History Alcohol intake: current Alcohol intake frequency: holidays/special occasions only Patient Tobacco Use Status: Never used Tobacco Review of Systems Const All systems reviewed & are unremarkable except as noted in HPI and below Denies fever(s), Denies headache(s) and Denies weakness Eyes Reports no additional complaints ENT Reports no additional complaints and Denies headache(s) Card Reports no additional complaints, Denies chest pain, Denies leg edema and Denies dyspnea Resp Denies cough and Denies dyspnea GI Denies abdominal pain, Denies nausea and Denies vomiting Denies dysuria and Denies urinary frequency Musc Reports no additional complaints Skin/Breast Details: Cut to the 4th toe on the left foot. Neuro Denies headache(s) and Denies weakness Psych Reports no additional complaints Endo Reports no additional complaints Physical Exam Vital Signs: Last Vital Signs Pulse 88 09/21/22 08:07 BP 130/80 09/21/22 08:07 Pulse Ox 98 09/21/22 08:07 Oxygen Delivery Method Room Air 09/21/22 08:07 Skin Other: Area of scabbing on the 4th toe the middle foot dry blood surrounding no active bleeding. Assessment & Plan Assessment & Plan (1) Laceration of foot, left: Code(s): S91.312A - Laceration without foreign body, left foot, initial encounter Plan 61-year-old male presents for laceration to the foot. VSS. Exam patient presents alert and oriented no acute distress exam is notable for scabbed area on the 4th toe left foot no active bleeding. Discussed with patient warning signs of active bleeding and recommended patient presents to the emergency department if bleeding continues. Discharge instructions, follow up and treatment are discussed with patient in my usual fashion. Alternatives in treatment are also discussed. The patient will return for worsening symptoms or as needed. Advised that any labs/imaging ordered will be followed up on and contact made if further treatment needed. Counseled that patient's condition may require further evaluation and/or treatment. Symptoms of concern for worsening disorder discussed in detail in my customary manner. Patient does verbalize understanding of the plan, there are no apparent barriers to communication. The patient is given the opportunity to ask questions and have them answered to his/her satisfaction Coding Level of Care Code New Pt Level 3 (06523) Diagnoses Laceration of foot, left S91.312A
[2022-09-21 08:07] VITALS: BP 130/80; PULSE 88; O2SAT 98
== END 2022-09-21 08:40 | disposition home or self-care (01) ==
PROVIDERS: PCP Internal Medicine; Visit Provider Physician Assistant
DX: S91.312A Laceration without foreign body, left foot, initial encounter (principal)
CPT/HCPCS: 99203

== ENCOUNTER 2022-09-22 13:58 | Outpatient (REF) | payer OTHER, SELFPAY | END 2022-09-22 13:59 | disposition home or self-care (01) | LOC: HO.BBR 13:58 | PROVIDERS: PCP Internal Medicine; Visit Provider Internal Medicine Hematology & Oncology | DX: Z13.89 Encounter for screening for other disorder (principal) ==

== ENCOUNTER 2022-11-24 08:06 | Outpatient (REF) | payer OTHER, SELFPAY | END 2022-11-24 08:07 | disposition home or self-care (01) | LOC: HO.BBR 08:06 | PROVIDERS: PCP Internal Medicine; Visit Provider Internal Medicine Hematology & Oncology | DX: Z13.89 Encounter for screening for other disorder (principal) ==